=== PATIENT | female | born 1970 | race Caucasian/White ===

== ENCOUNTER → 2024-02-22 09:16 | Outpatient (REF) | payer BC, SELFPAY | LOC: HWWDC 09:16 | PROVIDERS: ATTENDING PHYSICIAN Obstetrics & Gynecology; FAMILY PHYSICIAN Internal Medicine | DX: Z12.31 Encounter for screening mammogram for malignant neoplasm of breast (principal) | CPT/HCPCS: 77063; 77067 ==

== ENCOUNTER 2024-10-07 12:35 | Emergency (ER) | payer BC, SELFPAY ==
[2024-10-07 12:37] VITALS: BP 137/99
[2024-10-07 12:56] VITALS: BMI 28.9
[2024-10-07] MEDS: NSS 1000 IV (13:23)
[2024-10-07 13:24] LABS: % Basophils 0.5 % (0-2); % Eosinophils 0.1 % (0-6); % Immature Granulocytes 0.5 % (0-0.5); % Lymphocytes 4.3 % (20.5-51.1); % Monocytes 0.6 % (1.7-9.3); Absolute Basophils 0.1 10^3/uL (0-0.2); Absolute Immature Granulocytes 0.1 10^3/uL (0-0.05); Absolute Lymphocytes 0.4 10^3/uL (1.2-3.4); Absolute Monocytes 0.1 10^3/uL (0.1-0.6); Absolute Neutrophils 9.3 10^3/uL (1.4-6.5); Hematocrit 43.3 % (37.0-47.0); Hemoglobin 15.3 g/dL (12.0-16.0); Mean Corp Hgb Conc. 35.3 g/dL (33.0-37.0); Mean Corpuscular Hgb 30.7 pg (27.0-31.0); Mean Corpuscular Volume 86.9 fL (81.0-99.0); Mean Platelet Volume 9.6 fL (7.4-10.4); Nucleated Red Blood Cells % 0 %; Platelet Count 344 10^3/uL (130-400); Red Blood Cell Count 4.98 10^6/uL (4.20-5.40); Red Cell Dist. Width 11.9 % (11.5-14.5); White Blood Cell Count 9.9 10^3/uL (4.8-10.8)
[2024-10-07 13:30] LABS: ALT (SGPT) 37 U/L (0-35); AST (SGOT) 37 U/L (14-36); Albumin 4.3 g/dl (3.5-5.0); Alkaline Phosphatase 114 U/L (38-126); Blood Urea Nitrogen 17 mg/dl (7-17); Calcium 9.9 mg/dl (8.4-10.2); Carbon Dioxide 25 mmol/L (22-30); Chloride 94 mmol/L (98-107); Estimated Creatinine Clearance 54 ml/min; Glucose 148 mg/dl (70-99); Potassium 3.1 mmol/L (3.5-5.1); Sodium 134 mmol/L (135-145); Total Bilirubin 1.3 mg/dl (0.2-1.3); eGFR 49.17
[2024-10-07 13:35] LABS: COVID-19 Antigen Negative (Negative)
[2024-10-07 17:34] LABS: Urine Albumin Trace (Neg - Trace); Urine Bilirubin Negative (Negative); Urine Character Clear (Clear); Urine Color Yellow; Urine Glucose Negative (Negative); Urine Ketone Negative (Negative); Urine Leukocyte Negative (Negative); Urine Nitrite Negative (Negative); Urine Occult Blood Negative (Negative); Urine Specific Gravity 1.005 (<1.030); Urine Urobilinogen Negative (Neg - 1+)
--- NOTE | 2024-10-07 17:48 | ED.GENMED ---
History of Present Illness
General
Chief Complaint: Cold/Flu/URI Symptoms
Source: patient
Exam Limitations: none
Time Seen by Provider: 10/07/24 12:49
History of Present Illness
History of Present Illness:
54-year-old female who presents stating that she feels like she has had a flulike symptom for the last 4 days that she cannot shake. Patient states she is just profoundly fatigued and weak. She denies dysuria. No abdominal pain. No chest pain.
Very minimal cough. Has had no real nasal congestion. States she just feels like she has been sleeping a lot. No leg swelling. No rash. She has been nauseous and unable to eat or drink much at all.
Past History
Past History
ED Past Medical History: HTN
Phy Exam
Physical Exam
Physical Exam:
CONSTITUTIONAL Patient alert and oriented to person, place and time. Well-appearing. Vital signs reviewed.
HEAD atraumatic, normocephalic.
EYES eyelids normal to inspection, Extraocular muscles intact, Conjunctiva normal, Sclera normal.
NECK normal range of motion, Trachea midline, no jugular venous distention.
RESPIRATORY CHEST No respiratory distress noted, Chest expansion equal, Bilateral breath sounds clear.
CARDIOVASCULAR regular rate and rhythm, Heart sounds normal.
ABDOMEN abdomen nontender, Bowel sounds normal. No distention.
BACK normal inspection, no obvious deformities
UPPER EXTREMITY range of motion normal, Motor strength normal, no cyanosis, no edema.
LOWER EXTREMITY range of motion normal, Motor strength normal, no cyanosis, no edema.
NEURO Speech normal, No focal motor deficits, [place] coma scale 15, Memory normal, Cranial Nerves intact to screening exam.
SKIN skin warm, dry, and normal in color.
Sepsis
Sepsis Screening
Sepsis Assessment: Sepsis Ruled Out
Sepsis Screen
Sepsis Screen: Sepsis Ruled Out
Date: 10/07/24
Time: 18:26
Course
Orders/Labs/Results
Orders:
Orders
10/07/24 13:05
COVID-19 Antigen Urgent
Source: Nasal Swab
Complete Blood Count/With Diff Urgent
Comprehensive Metabolic Panel Urgent
Influenza A+B Rapid Molecular Urgent
JACK Source: Nasal Swab
Specimen Description:
10/07/24 13:12
0.9% Sodium Chloride 1000 ml [Nss] 1,000 ml IV BOLUS
CR Chest - 2 Views Urgent
Comment:
Reason For Exam: cough, fever
10/07/24 17:23
Urinalysis Reflex To Culture Urgent
Date Specimen was Collected: 10/07/24
Time Specimen was Collected: 17:22
10/07/24 17:52
Electrocardiogram (*1) Stat
Reason for Study: Other
Other Reason for Exam: chest pain
EKG- Treatment ONCE
Abnormal Lab Results
10/07/24
13:05
Abs Immat Gran (auto) 0.1 H 10^3/uL
(0-0.05)
Absolute Neuts (auto) 9.3 H 10^3/uL
(1.4-6.5)
Absolute Lymphs (auto) 0.4 L 10^3/uL
(1.2-3.4)
Neutrophils % 94.0 H %
(42.2-75.2)
Lymphocytes % 4.3 L %
(20.5-51.1)
Monocytes % 0.6 L %
(1.7-9.3)
Sodium 134 L mmol/L
(135-145)
Potassium 3.1 L mmol/L
(3.5-5.1)
Chloride 94 L mmol/L
(98-107)
Creatinine 1.3 H mg/dL
(0.6-1.0)
Glucose 148 H mg/dl
(70-99)
AST 37 H U/L
(14-36)
ALT 37 H U/L
(0-35)
10/07/24 13:05
10/07/24 13:05
Vital Signs
Initial and Last Documented VS:
Initial Vital Signs
Temp Pulse Resp BP Pulse Ox
98.4 F 92 22 137/99 98
10/07/24 12:37 10/07/24 12:37 10/07/24 12:37 10/07/24 12:37 10/07/24 12:37
Last Documented Vital Signs
Temp Pulse Resp BP Pulse Ox
99.2 F 86 18 105/69 97
10/07/24 17:53 10/07/24 17:53 10/07/24 17:53 10/07/24 17:53 10/07/24 17:53
MDM/Problems Addressed
MDM/Problems Addressed:
Fatigue, weakness, possible viral syndrome
*Radiology
Radiology exam reviewed: radiology read reviewed and all reviewed NAD by ED Provider
*Pulse Oximetry
Patient hypoxic: no
*EKG
Interpreted by ED Provider?: Yes
Interpretation: normal
Rate: normal
Rhythm: sinus
[place]: normal axis
Interval: normal interval
Ischemia: no ischemia
*[employer] Interpretation
Rate: normal
Interpretation: normal
Rhythm: sinus
*Critical Care Note
Total Time (30-74mins, 75-104mins- exclusive of procedures): Not Applicable
Data Reviewed
Source: patient and family
Prescriptions/Medications Considered But Not Given:
Consider antibiotics but no evidence of bacterial infection. Urinalysis negative. Lungs clear and chest x-ray negative.
Patient Management
Escalation/DeEscalation of care consider admission/obs:
Patient reassessed and abdomen benign. Pulse ox normal. Appears well and is eating ice chips. Does have a little bit of left shift on her CBC but her serum white count is normal she is afebrile. Question whether this is a viral-like illness. No
clinical suspicion for acute intra-abdominal process as she has no distention and no tenderness. Check EKG for completeness but anticipate outpatient manage with antiemetics, slow progression of diet and clear liquid
Update Note
Update Note:
EKG okay. I think is reasonable to manage as outpatient. Patient will monitor symptoms closely. She is volume contracted with a pulmonary creatinine. Will have her hold her hydrochlorothiazide and initiate potassium supplementation. Recommended
clear liquids and will provide antiemetics.
ED Attending Note
-
Portions of this chart may have been created with voice recognition software.� Occasional wrong word or��sound alike� substitutions may have occurred due to the inherent limitations of voice recognition software.
Discharge Plan
Departure
Patient Disposition: Home (Routine Discharge)
Date of Disposition: 10/07/24
Time of Disposition: 17:55
Patient with high blood pressure during this ER visit?: No
Discharge Problem:
Weakness, Nausea, Dehydration, Acute hypokalemia
Instructions: Clear Liquid Diet, Fatigue (DC), Weakness
Prescriptions:
New
potassium chloride 20 mEq tablet,ER particles/crystals
20 meq PO BID Qty: 10 0RF
ondansetron 4 mg tablet,disintegrating
4 mg PO Q8H PRN (Reason: nausea and vomiting) Qty: 15 0RF
No Action
hydrochlorothiazide capsule
50 mg PO
Referrals:
Murray Roa MD [Family Provider] -
Activity Restrictions/Additional Instructions:
Please do not take your hydrochlorothiazide. Please drink plenty of fluids and advance diet slowly. Stick to a clear liquid diet for now. Return immediately for progression of symptoms, intractable nausea and vomiting, inability to hold down
liquids or solids, difficulty breathing, change in mental status or any other concerns. Please see your doctor in the next 3 days for follow-up and reevaluation.
Interventions
Interventions:
*Risk Screen - Suicide Last Done: 10/07/24 12:37
*General Assessment Last Done: 10/07/24 12:37
*Neglect/Abuse Screening Last Done: 10/07/24 12:37
ED- Fall Risk Assessment Last Done: 10/07/24 12:56
*ED COVID-19 Vaccine History Last Done: 10/07/24 12:56
ED- Pulmonary Assessment Last Done: 10/07/24 12:56
Discharge Date and Time
Print Language: GRENADIAN
[2024-10-07 17:53] VITALS: BP 105/69
== END 2024-10-07 19:01 | disposition home or self-care (01) ==
LOC: EMR 12:35
PROVIDERS: EMERGENCY PHYSICIAN Emergency Medicine; FAMILY PHYSICIAN Internal Medicine
DX: E86.0 Dehydration (principal); E87.6 Hypokalemia; I10 Essential (primary) hypertension
CPT/HCPCS: 99284; 96360; 71046; 80053; 81003; 85025; 87502; 87811; 93005

== ENCOUNTER → 2025-03-05 08:18 | Outpatient (REF) | payer BC, SELFPAY | LOC: HWWDC 08:18 | PROVIDERS: ATTENDING PHYSICIAN Obstetrics & Gynecology; FAMILY PHYSICIAN Internal Medicine | DX: Z12.31 Encounter for screening mammogram for malignant neoplasm of breast (principal) | CPT/HCPCS: 77063; 77067 ==

== ENCOUNTER → 2025-04-23 07:48 | Outpatient (REF) | payer BC, SELFPAY | LOC: HWRAD 07:48 | PROVIDERS: ATTENDING PHYSICIAN Obstetrics & Gynecology; FAMILY PHYSICIAN Family Medicine | DX: R19.03 Right lower quadrant abdominal swelling, mass and lump (principal); Z84.2 Family history of other diseases of the genitourinary system | CPT/HCPCS: 76830; 76856 ==